=== PATIENT | male | born 1955 | race Caucasian/White ===

== ENCOUNTER 2023-01-30 09:41 | Outpatient (AMB) | payer MEDICARE, BC, SELFPAY ==
--- NOTE | 2023-01-30 09:46 | A.OFFVIS_ITS ---
Intake Intake Visit Reasons: Elevated PSA 5.8 Intake Note: New Patient presents for initial visit for elevated psa (psa 5.8) Urology Medications: none Blood Thinner: none Refrigeration Engineer Required: No Accompanied by: Self / Same As Patient Allergies No Known Allergies Allergy (Verified 01/30/23 10:31) Medication List - Last Reconciled 01/30/23 by JENNA Bee lisinopril 20 mg PO DAILY HPI HPI Comments History of Present Illness Details Ji is a very pleasant 67-year-old male patient of Dr. Dobson. He has a past medical history of rheumatic fever as a child, hyperlipidemia, hypertension, dilation of the thoracic aorta, and left knee DJD. He presents to the office today for an elevated PSA. In review of patient's chart it appears most recent PSA 10/27/22 5.8. When asked patient reports to be doing and feeling well. He reports previously having elevated PSA in the past however upon redraw with PCP it was noted to be within normal limits. He reports a previous history of prostatitis approximately 15 years ago at which time he was treated with antibiotic therapy and has since not experienced any prostatitis like issues. He denies any bothersome urinary issues or concerns at this time. He denies any known family history of prostate cancer. In office urinalysis results reviewed with the patient today. When asked he denies urinary urgency, urinary frequency, incontinence, nocturia, hematuria, dysuria, foul smelling urine, changes to urinary stream, flank pain, fever, and or chills. He is happy with hiscurrent voiding parameters. Discussed at length potential causes for elevated PSA. Discussed redraw of PSA with no sex the night before, no caffeine morning of, and no heavy lifting 1-2 days prior. Will obtain retroperitoneal ultrasound for further assessment evaluation. NICKI; smooth and no suspicious nodules palpated. [facility] Medical History History of rheumatic fever as a child Left knee DJD Impaired fasting glucose Essential (primary) hypertension Hyperlipidemia, unspecified Benign prostatic hyperplasia with nocturia Dilation of thoracic aorta Review of Systems Const Reports as per HPI Eyes Reports no additional complaints ENT Reports no additional complaints Card Reports as per HPI Resp Reports no additional complaints GI Reports no additional complaints Reports as per HPI Musc Reports as per HPI Neuro Reports no additional complaints Psych Reports no additional complaints Endo Reports no additional complaints Efrain/Lymph Reports no additional complaints Aller/Immun Reports no additional complaints Physical Exam Const General: cooperative, healthy appearing, comfortable, no acute distress, well developed, alert and awake Orientation/consciousness: patient oriented x3 Limitations: no limitations HEENT Head: Yes normal to inspection, Yes normocephalic and Yes atraumatic Ears: hearing grossly normal bilaterally Eyes General: appearance normal, both eyes and all related structures Neck Neck: Yes normal visual inspection and Yes trachea midline Chest Chest palpation & inspection: normal inspection of the chest Resp Effort & Inspection: normal respiratory effort and able to speak in complete sentences Cardio Rate: regular rate GI Inspection: Yes normal to inspection General: Yes no CVA tenderness Back/Spine/Pelvis Back: no CVA tenderness Skin General skin exam: no rashes or lesions noted Neuro General: patient oriented x3 Extrem General: Yes normal to inspection Psych Appearance: grossly normal and well kempt Mental Status: mental status grossly normal Speech and movement: Normal speech and movement present and Clear speech present Affect: normal affect Attitude: cooperative Thought process: Normal thought process present Thought content: Normal thought content present Insight: Good insight present (Psych) Judgement: Good judgement present (Psych) Results AMB Urinalysis, Automated UA Leukoctes 0 Kassandra/uL Last Edit by [facility] on 01/30/23 10:19 UA Nitrite Negative Last Edit by [facility] on 01/30/23 10:19 UA Urobilinogen 0.2 mg/dL Last Edit by [facility] on 01/30/23 10:19 UA Protein 15 mg/dL Last Edit by [facility] on 01/30/23 10:19 UA pH 6.0 Last Edit by [facility] on 01/30/23 10:19 UA Blood 0 Aiden/uL Last Edit by [facility] on 01/30/23 10:19 UA Specific [place] 1.025 Last Edit by [facility] on 01/30/23 10:19 UA Ketone Positive Last Edit by [facility] on 01/30/23 10:19 UA Bilirubin 0 mg/dL Last Edit by [facility] on 01/30/23 10:19 UA Glucose 0 mg/dL Last Edit by Lidia Lovelace on 01/30/23 10:19 Results Reviewed Results Reviewed: Laboratory Last Values Urine pH (Auto) 6.0 01/30/23 10:01 Specific [place] (Auto) 1.025 01/30/23 10:01 Urine Protein (Auto) 15 mg/dL 01/30/23 10:01 Glucose (UA)(Auto) 0 mg/dL 01/30/23 10:01 Urine Ketones (Auto) Positive 01/30/23 10:01 Urine Blood (Auto) 0 Aiden/uL 01/30/23 10:01 Urine Nitrite (Auto) Negative 01/30/23 10:01 Urine Bilirubin (Auto) 0 mg/dL 01/30/23 10:01 Urine Urobilinogen (Auto) 0.2 mg/dL 01/30/23 10:01 Leukocyte Esterase (Auto) 0 Kassandra/uL 01/30/23 10:01 Assessment & Plan Assessment & Plan (1) Elevated PSA: Code(s): R97.20 - Elevated prostate specific antigen [PSA] Plan In office urinalysis results reviewed with the patient today; as noted above Discussed at length potential causes for elevated PSA Will obtain redraw of PSA free and total; up with specific instructions of no sex the night before, no caffeine morning of, and no heavy lifting 1-2 days prior. Will obtain retroperitoneal ultrasound for further assessment and evaluation. Patient denies any bothersome urinary issues or concerns at this time. He is happy with his current voiding parameters. Follow-up in 1-2 months with imaging and labs to be completed prior; or sooner with any issues, concerns, or questions. Orders: Orders PSA,Total (Free>4and<10) Today R97.20 - Elevated prostate specific antigen [PSA] US retroperitoneal comp Today R39.9 - Unspecified symptoms and signs involving the genitourinary system, R97.20 - Elevated prostate specific antigen [PSA] AMB Urinalysis Automated Today Z13.9 - Encounter for screening, unspecified Patient Instructions: The patient had an opportunity to ask questions regarding the treatment plan. All questions were answered. Physical exam, labs, and imaging were discussed and reviewed in detail. As well as risks, benefits, and discussion of treatment choices. No major barriers to understanding were identified. The patient expressed understanding and agreement with the above treatment plan. The patient was made aware they should contact our office by phone for worsening of their current condition, the appearance of new symptoms, or with any questions or concerns. Compliance is encouraged with any medications and follow up testing that is ordered. It is a privilege to be allowed the opportunity to participate in? your urological care.? Again, if you have any questions or concerns If you have any questions or concerns please do not hesitate to contact me. The office is [phone]. This note is constructed using voice recognition software. While every effort has been made to ensure accuracy coater operator insulation board errors may have been included. Yours sincerely, JENNA Bee Coding Level of Care Code New Pt Level 3 (72335) Diagnoses Elevated PSA R97.20
== END 2023-01-30 10:39 | disposition home or self-care (01) ==
PROVIDERS: PCP Internal Medicine; Referring Provider Internal Medicine; Visit Provider Nurse Practitioner Family
DX: R97.20 Elevated prostate specific antigen [PSA] (principal); Z13.9 Encounter for screening, unspecified
CPT/HCPCS: 99203

== ENCOUNTER → 2023-01-30 09:41 | Outpatient (BNVA) | payer MEDICARE, BC, SELFPAY | PROVIDERS: PCP Internal Medicine; Referring Provider Internal Medicine; Visit Provider Nurse Practitioner Family | DX: R97.20 Elevated prostate specific antigen [PSA] (principal) | CPT/HCPCS: 81003 ==

== ENCOUNTER 2023-03-19 09:31 | Outpatient (REF) | payer MEDICARE, BC, SELFPAY ==
--- NOTE | ~2023-03-19 | US_ITS ---
EXAMINATION: US RETROPERITONEAL COMPLETE (RENAL) CLINICAL INFORMATION: Elevated prostate-specific antigen. Per picker box operator patient states he can't empty under pressure. COMPARISON: None available. TECHNIQUE: Real-time imaging of the kidneys and bladder. Limited visualization due to bowel gas. FINDINGS: RIGHT KIDNEY: 10.5 x 5.1 x 5.6 cm (SAG x AP x TRV). No hydronephrosis. No renal calculi. Renal cortical thickness is normal. Limited visualization. Lower pole 0.8 cm cyst with benign features. There is no indication for follow-up imaging. LEFT KIDNEY: 11.1 x 5.4 x 5.1 cm (SAG x AP x TRV). The kidney is normal in size, contour, and echogenicity. Renal cortical thickness is normal. No calculi or focal parenchymal lesions. No hydronephrosis. BLADDER: Well distended. Bilateral ureteral jets are demonstrated. Prevoid bladder volume is 150.5 mL. Postvoid bladder volume is 145.0 mL. Per picker box operator patient states he can't empty under pressure. A 1.4 x 0.9 x 1.8 cm cystic structure along the bladder wall, possibly representing a ureterocele. Urology consultation recommended with possible direct visualization with cystoscopy. Enlarged prostate, 85.8 mL. Echogenic foci within the enlarged prostate are characteristic coarse calcifications. US/US retroperitoneal comp IMPRESSION: 1. Right renal lower pole 0.8 cm cyst with benign features. There is no indication for follow-up imaging. 2. Enlarged prostate, 85.8 mL. Echogenic foci within the enlarged prostate characteristic coarse calcifications. A 1.4 x 0.9 x 1.8 cm cystic structure along the bladder wall. 3. A 1.8 cm cystic structure along the bladder wall, possibly representing a ureterocele. Urology consultation recommended with possible direct visualization with cystoscopy.
== END 2023-03-19 09:32 | disposition home or self-care (01) ==
LOC: HO.US 09:31
PROVIDERS: PCP Physician Assistant Medical; Visit Provider Nurse Practitioner Family
DX: R97.20 Elevated prostate specific antigen [PSA] (principal); R39.9 Unspecified symptoms and signs involving the genitourinary system
CPT/HCPCS: 76770

== ENCOUNTER 2023-03-28 09:13 | Outpatient (AMB) | payer MEDICARE, BC, SELFPAY ==
--- NOTE | 2023-03-28 09:45 | A.OFFVIS_ITS ---
Intake Intake Visit Reasons: follow up/labs/imaging Intake Note: Patient presents for follow up visit for elevated psa/ultrasound (psa 5.5) (imaging 03/19/23) Urology Medications: none Blood Thinner: none Field Artillery Crewmember Required: No Accompanied by: Self / Same As Patient Allergies No Known Allergies Allergy (Verified 03/28/23 22:55) Medication List - Last Reconciled 03/28/23 by MELY Bee- finasteride 5 mg PO DAILY 90 days lisinopril 20 mg PO DAILY HPI HPI Comments History of Present Illness Details Ji is a very pleasant 67-year-old male patient of Dr. Dobson. He has a past medical history of rheumatic fever as a child, hyperlipidemia, hypertension, dilation of the thoracic aorta, and left knee DJD. He presents to the office today for a follow up of his elevated PSA. Of note, patient was seen approximately two months at which time a redraw of his PSA was ordered as well as a retroperitoneal ultrasound. These results reviewed with the patient today. Bilateral kidneys with no calculi, and or hydronephrosis. Right lower pole 0.8 cm cyst with benign features. There is no indication for follow-up imaging per radiology report. The bladder is well distended. A 1.4 x 0.9 x 1.8 cm cystic structure along the bladder wall, possibly representing a ureterocele. Enlarged prostate of approximately 86 mL. Echogenic foci within the enlarged prostate or characteristics of coarse calcifications. PSAs are as follows: 10/29--5.8 03/31-- 5.5 When asked patient reports to be doing and feeling well. He reports a previous history of prostatitis approximately 15 years ago at which time he was treated with antibiotic therapy and has since not experienced any prostatitis like issues. He denies any bothersome urinary issues or concerns at this time. He denies any known family history of prostate cancer. In office urinalysis results reviewed with the patient today. When asked he denies urinary urgency, urinary frequency, incontinence, nocturia, hematuria, dysuria, foul smelling urine, changes to urinary stream, flank pain, fever, and or chills. He is happy with his current voiding parameters. Discussed at length potential causes for elevated PSA. PCPT risk calculator results reviewed with the patient today. 71% chance of prostate biopsy being negative for cancer, 20% chance of low-grade prostate cancer, and 9% chance of high-grade prostate cancer. Discussed at length surveillance monitoring verses prostate biopsy. Discussed risks and benefits of these interventions. Discussed near future in office cystoscopy for further assessment evaluation of ureterocele. [facility] Medical History History of rheumatic fever as a child Left knee DJD Impaired fasting glucose Essential (primary) hypertension Hyperlipidemia, unspecified Benign prostatic hyperplasia with nocturia Dilation of thoracic aorta Review of Systems Const Reports as per HPI Eyes Reports no additional complaints ENT Reports no additional complaints Card Reports as per HPI Resp Reports no additional complaints GI Reports no additional complaints Reports as per HPI Musc Reports as per HPI Neuro Reports no additional complaints Psych Reports no additional complaints Endo Reports no additional complaints Ferain/Lymph Reports no additional complaints Aller/Immun Reports no additional complaints Physical Exam Const General: cooperative, healthy appearing, comfortable, no acute distress, well developed, alert and awake Orientation/consciousness: patient oriented x3 Limitations: no limitations HEENT Head: Yes normal to inspection, Yes normocephalic and Yes atraumatic Ears: hearing grossly normal bilaterally Eyes General: appearance normal, both eyes and all related structures Neck Neck: Yes normal visual inspection and Yes trachea midline Chest Chest palpation & inspection: normal inspection of the chest Resp Effort & Inspection: normal respiratory effort and able to speak in complete sentences Cardio Rate: regular rate GI Inspection: Yes normal to inspection General: Yes no CVA tenderness Back/Spine/Pelvis Back: no CVA tenderness Skin General skin exam: no rashes or lesions noted Neuro General: patient oriented x3 Extrem General: Yes normal to inspection Psych Appearance: grossly normal and well kempt Mental Status: mental status grossly normal Speech and movement: Normal speech and movement present and Clear speech present Affect: normal affect Attitude: cooperative Thought process: Normal thought process present Thought content: Normal thought content present Insight: Good insight present (Psych) Judgement: Good judgement present (Psych) Results AMB Urinalysis, Automated UA Leukoctes 0 Kassandra/uL Last Edit by Lidia Lovelace on 03/28/23 09:54 UA Nitrite Last Edit by Lidia Lovelace on 03/28/23 09:54 UA Urobilinogen 0.2 mg/dL Last Edit by Lidia Lovelace on 03/28/23 09:54 UA Protein 0 mg/dL Last Edit by Lidia Lovelace on 03/28/23 09:54 UA pH 6.0 Last Edit by Lidia Lovelace on 03/28/23 09:54 UA Blood 0 Aiden/uL Last Edit by Lidia Lovelace on 03/28/23 09:54 UA Specific [place] 1.025 Last Edit by Lidia Lovelace on 03/28/23 09:54 UA Ketone Negative Last Edit by Lidia Lovelace on 03/28/23 09:54 UA Bilirubin 0 mg/dL Last Edit by Lidia Lovelace on 03/28/23 09:54 UA Glucose 0 mg/dL Last Edit by Lidia Lovelace on 03/28/23 09:54 Results Reviewed Results Reviewed: Laboratory Last Values Urine pH (Auto) 6.0 03/28/23 09:53 Specific [place] (Auto) 1.025 03/28/23 09:53 Urine Protein (Auto) 0 mg/dL 03/28/23 09:53 Glucose (UA)(Auto) 0 mg/dL 03/28/23 09:53 Urine Ketones (Auto) Negative 03/28/23 09:53 Urine Blood (Auto) 0 Aiden/uL 03/28/23 09:53 Urine Bilirubin (Auto) 0 mg/dL 03/28/23 09:53 Urine Urobilinogen (Auto) 0.2 mg/dL 03/28/23 09:53 Leukocyte Esterase (Auto) 0 Kassandra/uL 03/28/23 09:53 Date of Service: 03/19/23 EXAMINATION: US RETROPERITONEAL COMPLETE (RENAL) FINDINGS: RIGHT KIDNEY: 10.5 x 5.1 x 5.6 cm (SAG x AP x TRV). No hydronephrosis. No renal calculi. Renal cortical thickness is normal. Limited visualization. Lower pole 0.8 cm cyst with benign features. There is no indication for follow-up imaging. LEFT KIDNEY: 11.1 x 5.4 x 5.1 cm (SAG x AP x TRV). The kidney is normal in size, contour, and echogenicity. Renal cortical thickness is normal. No calculi or focal parenchymal lesions. No hydronephrosis. BLADDER: Well distended. Bilateral ureteral jets are demonstrated. Prevoid bladder volume is 150.5 mL. Postvoid bladder volume is 145.0 mL. Per speeder machine operator patient states he can't empty under pressure. A 1.4 x 0.9 x 1.8 cm cystic structure along the bladder wall, possibly representing a ureterocele. Urology consultation recommended with possible direct visualization with cystoscopy. Enlarged prostate, 85.8 mL. Echogenic foci within the enlarged prostate are characteristic coarse calcifications. IMPRESSION: 1. Right renal lower pole 0.8 cm cyst with benign features. There is no indication for follow-up imaging. 2. Enlarged prostate, 85.8 mL. Echogenic foci within the enlarged prostate characteristic coarse calcifications. A 1.4 x 0.9 x 1.8 cm cystic structure along the bladder wall. 3. A 1.8 cm cystic structure along the bladder wall, possibly representing a ureterocele. Urology consultation recommended with possible direct visualization with cystoscopy. Assessment & Plan Assessment & Plan (1) Elevated PSA: Code(s): R97.20 - Elevated prostate specific antigen [PSA] (2) Ureterocele: Code(s): N28.89 - Other specified disorders of kidney and ureter (3) Enlarged prostate: Code(s): N40.0 - Benign prostatic hyperplasia without lower urinary tract symptoms Plan In office urinalysis results reviewed with the patient today; as noted above. Recent retroperitoneal ultrasound results reviewed with the patient today; as noted above. Recent PSA results reviewed with the patient today; as noted above. Discussed at length potential causes of elevated PSA. Discussed at length treatment options with surveillance monitoring verses trial of finasteride verses prostate biopsy; discussed risks and benefits of these asforementioned interventions. Start finasteride as discussed and prescribed. Will obtain redraw of PSA in 4 months. Patient denies any bothersome urinary issues or concerns at this time. Follow-up in 4 months with lab to be completed prior; or sooner with any issues, concerns, and or questions. Orders: Orders PSA,Total (Free>4and<10) 4 Months R97.20 - Elevated prostate specific antigen [PSA] AMB Urinalysis Automated 03/28/23 Z13.9 - Encounter for screening, unspecified Medications: New finasteride 5 mg PO DAILY 90 days 90 tabs 1RF N13.8 - Other obstructive and reflux uropathy, N40.1 - Benign prostatic hyperplasia with lower urinary tract symptoms, R33.9 - Retention of urine, unspecified Patient Instructions: The patient had an opportunity to ask questions regarding the treatment plan. All questions were answered. Physical exam, labs, and imaging were discussed and reviewed in detail. As well as risks, benefits, and discussion of treatment choices. No major barriers to understanding were identified. The patient expressed understanding and agreement with the above treatment plan. The patient was made aware they should contact our office by phone for worsening of their current condition, the appearance of new symptoms, or with any questions or concerns. Compliance is encouraged with any medications and follow up testing that is ordered. It is a privilege to be allowed the opportunity to participate in? your urological care.? Again, if you have any questions or concerns If you have any questions or concerns please do not hesitate to contact me. The office is [phone]. This note is constructed using voice recognition software. While every effort has been made to ensure accuracy sales and service agent errors may have been included. Yours sincerely, JENNA Bee Coding Level of Care Code Est Pt Level 4 (51422) Diagnoses Elevated PSA R97.20 Ureterocele N28.89 Enlarged prostate N40.0
== END 2023-03-28 10:25 | disposition home or self-care (01) ==
PROVIDERS: PCP Internal Medicine; Visit Provider Nurse Practitioner Family
DX: R97.20 Elevated prostate specific antigen [PSA] (principal); N28.89 Other specified disorders of kidney and ureter; N40.0 Benign prostatic hyperplasia without lower urinary tract symptoms
CPT/HCPCS: 99214

== ENCOUNTER → 2023-03-28 09:13 | Outpatient (BNVA) | payer MEDICARE, BC, SELFPAY | PROVIDERS: PCP Internal Medicine; Visit Provider Nurse Practitioner Family | DX: R97.20 Elevated prostate specific antigen [PSA] (principal); N28.89 Other specified disorders of kidney and ureter; N40.0 Benign prostatic hyperplasia without lower urinary tract symptoms | CPT/HCPCS: 81003; 99212 ==

== ENCOUNTER 2023-08-01 08:51 | Outpatient (REF) | payer MEDICARE, BC, SELFPAY | END 2023-08-01 08:52 | disposition home or self-care (01) | LOC: HO.10HDL 08:51 | PROVIDERS: Visit Provider Nurse Practitioner Family | DX: Z12.5 Encounter for screening for malignant neoplasm of prostate (principal); R97.20 Elevated prostate specific antigen [PSA] | CPT/HCPCS: 36415; 84153 ==

== ENCOUNTER 2023-08-06 09:36 | Outpatient (AMB) | payer MEDICARE, BC, SELFPAY ==
--- NOTE | 2023-08-06 09:41 | MHC.OFFVIS ---
Intake Visit Reasons: PSA total- 4 M f/u(set) Intake Note: Patient presents for follow up visit for elevated psa and lab results PSA: 3.70 Urology Medications: none Blood Thinner: none Social Service Technician Required: No Accompanied by: Self / Same As Patient Allergies No Known Allergies Allergy (Verified 08/06/23 10:07) Medication List - Last Reconciled 08/06/23 by JENNA Bee finasteride 5 mg PO DAILY 90 days lisinopril 20 mg PO DAILY HPI Comments Details: Ji is a very pleasant 68-year-old male patient of Dr. Dobson. He has a past medical history of rheumatic fever as a child, hyperlipidemia, hypertension, dilation of the thoracic aorta, and left knee DJD. He presents to the office today for a follow up of his elevated PSA. In discussion with the patient today reports to be doing and feeling well. Recent PSA results reviewed with the patient today. As noted and trended below. 10/29 5.8, 03/31 5.5, 07/31 3.7 When asked he reports compliance with finasteride as prescribed. Previous workup has included a retroperitoneal ultrasound noting bilateral kidneys with no calculi, and or hydronephrosis. Right lower pole 0.8 cm cyst with benign features. There is no indication for follow-up imaging per radiology report. The bladder is well distended. A 1.4 x 0.9 x 1.8 cm cystic structure along the bladder wall, possibly representing a ureterocele. Enlarged prostate of approximately 86 mL. Echogenic foci within the enlarged prostate or characteristics of coarse calcifications. He has a history of prostatitis approximately 15 years ago at which time he was treated with antibiotic therapy and has since not experienced any prostatitis like issues. He denies any bothersome urinary issues or concerns at this time. In office urinalysis results reviewed with the patient today. When asked he denies urinary urgency, urinary frequency, incontinence, nocturia, hematuria, dysuria, foul smelling urine, changes to urinary stream, flank pain, fever, and or chills. He is happy with his current voiding parameters. Discussed near future in office cystoscopy for further assessment evaluation of ureterocele. He otherwise denies any other issues or concerns at this time. [facility] Medical History History of rheumatic fever as a child Left knee DJD Impaired fasting glucose Essential (primary) hypertension Hyperlipidemia, unspecified Benign prostatic hyperplasia with nocturia Dilation of thoracic aorta Review of Systems Const Reports as per HPI Eyes Reports no additional complaints ENT Reports no additional complaints Card Reports as per HPI Resp Reports no additional complaints GI Reports no additional complaints Reports as per HPI Musc Reports as per HPI Neuro Reports no additional complaints Psych Reports no additional complaints Endo Reports no additional complaints Efrain/Lymph Reports no additional complaints Aller/Immun Reports no additional complaints Physical Exam Const General: cooperative, healthy appearing, comfortable, no acute distress, well developed, alert and awake Orientation/consciousness: patient oriented x3 Limitations: no limitations HEENT Head: Yes normal to inspection, Yes normocephalic and Yes atraumatic Ears: hearing grossly normal bilaterally Eyes General: appearance normal, both eyes and all related structures Neck Neck: Yes normal visual inspection and Yes trachea midline Chest Chest palpation & inspection: normal inspection of the chest Resp Effort & Inspection: normal respiratory effort and able to speak in complete sentences Cardio Rate: regular rate GI Inspection: Yes normal to inspection General: Yes no CVA tenderness Back/Spine/Pelvis Back: no CVA tenderness Skin General skin exam: no rashes or lesions noted Neuro General: patient oriented x3 Extrem General: Yes normal to inspection Psych Appearance: grossly normal and well kempt Mental Status: mental status grossly normal Speech and movement: Normal speech and movement present and Clear speech present Affect: normal affect Attitude: cooperative Thought process: Normal thought process present Thought content: Normal thought content present Insight: Good insight present (Psych) Judgement: Good judgement present (Psych) Results AMB Urinalysis, Automated UA Leukoctes 0 Kassandra/uL Last Edit by Lidia Lovelace on 08/06/23 09:52 UA Nitrite Negative Last Edit by Lidia Lovelace on 08/06/23 09:52 UA Urobilinogen 0.2 mg/dL Last Edit by Lidia Lovelace on 08/06/23 09:52 UA Protein 0 mg/dL Last Edit by Lidia Lovelace on 08/06/23 09:52 UA pH 6.0 Last Edit by Lidia Lovelace on 08/06/23 09:52 UA Blood 0 Aiden/uL Last Edit by Lidia Lovelace on 08/06/23 09:52 UA Specific [place] 1.020 Last Edit by Lidia Lovelace on 08/06/23 09:52 UA Ketone Negative Last Edit by Lidia Lovelace on 08/06/23 09:52 UA Bilirubin 0 mg/dL Last Edit by Lidia Lovelace on 08/06/23 09:52 UA Glucose 0 mg/dL Last Edit by Lidia Lovelace on 08/06/23 09:52 Results Reviewed Results Reviewed: Laboratory Last Values Urine pH (Auto) 6.0 08/06/23 09:46 Specific [place] (Auto) 1.020 08/06/23 09:46 Urine Protein (Auto) 0 mg/dL 08/06/23 09:46 Glucose (UA)(Auto) 0 mg/dL 08/06/23 09:46 Urine Ketones (Auto) Negative 08/06/23 09:46 Urine Blood (Auto) 0 Aiden/uL 08/06/23 09:46 Urine Nitrite (Auto) Negative 08/06/23 09:46 Urine Bilirubin (Auto) 0 mg/dL 08/06/23 09:46 Urine Urobilinogen (Auto) 0.2 mg/dL 08/06/23 09:46 Leukocyte Esterase (Auto) 0 Kassandra/uL 08/06/23 09:46 Assessment & Plan Assessment & Plan (1) Enlarged prostate: Code(s): N40.0 - Benign prostatic hyperplasia without lower urinary tract symptoms Category: Medical (2) Elevated PSA: Code(s): R97.20 - Elevated prostate specific antigen [PSA] Category: Medical (3) Ureterocele: Code(s): N28.89 - Other specified disorders of kidney and ureter Category: Medical Plan In office urinalysis results reviewed with the patient today; as noted above. Recent PSA results reviewed with the patient today; as noted above. Discussed at length potential causes of elevated PSA. Continue finasteride as discussed and prescribed. Will obtain redraw of PSA in 4 months. Patient denies any bothersome urinary issues or concerns at this time. Follow-up in 4 months with lab to be completed prior; or sooner with any issues, concerns, and or questions. Orders: Orders AMB Urinalysis Automated Today Z13.9 - Encounter for screening, unspecified Prostate Specific Antigen 4 Months N40.0 - Benign prostatic hyperplasia without lower urinary tract symptoms, R97.20 - Elevated prostate specific antigen [PSA] Medications: Refilled finasteride 5 mg PO DAILY 90 days 90 tabs 3RF N13.8 - Other obstructive and reflux uropathy, N40.1 - Benign prostatic hyperplasia with lower urinary tract symptoms, R33.9 - Retention of urine, unspecified Patient Instructions: The patient had an opportunity to ask questions regarding the treatment plan. All questions were answered. Physical exam, labs, and imaging were discussed and reviewed in detail. As well as risks, benefits, and discussion of treatment choices. No major barriers to understanding were identified. The patient expressed understanding and agreement with the above treatment plan. The patient was made aware they should contact our office by phone for worsening of their current condition, the appearance of new symptoms, or with any questions or concerns. Compliance is encouraged with any medications and follow up testing that is ordered. It is a privilege to be allowed the opportunity to participate in? your urological care.? Again, if you have any questions or concerns If you have any questions or concerns please do not hesitate to contact me. The office is [phone]. This note is constructed using voice recognition software. While every effort has been made to ensure accuracy shipyard painting supervisor errors may have been included. Yours sincerely, JENNA Bee Coding Level of Care Code Est Pt Level 3 (39270) Diagnoses Enlarged prostate N40.0 Elevated PSA R97.20 Ureterocele N28.89
== END 2023-08-06 10:09 | disposition home or self-care (01) ==
PROVIDERS: PCP Internal Medicine; Visit Provider Nurse Practitioner Family
DX: N40.0 Benign prostatic hyperplasia without lower urinary tract symptoms (principal); R97.20 Elevated prostate specific antigen [PSA]; N28.89 Other specified disorders of kidney and ureter; Z13.9 Encounter for screening, unspecified
CPT/HCPCS: 99213

== ENCOUNTER → 2023-08-06 09:36 | Outpatient (BNVA) | payer MEDICARE, BC, SELFPAY | PROVIDERS: PCP Internal Medicine; Visit Provider Nurse Practitioner Family | DX: R97.20 Elevated prostate specific antigen [PSA] (principal); N40.1 Benign prostatic hyperplasia with lower urinary tract symptoms; N13.8 Other obstructive and reflux uropathy; R33.8 Other retention of urine; N28.89 Other specified disorders of kidney and ureter | CPT/HCPCS: 81003; 99212 ==

== ENCOUNTER 2023-11-07 08:27 | Outpatient (REF) | payer MEDICARE, BC, SELFPAY ==
[2023-11-07 11:47] LABS: Prostate Specific Antigen 3.11 ng/mL (<0.05-4.0)
== END 2023-11-07 08:28 | disposition home or self-care (01) ==
LOC: HO.10HDL 08:27
PROVIDERS: Visit Provider Nurse Practitioner Family
DX: N40.0 Benign prostatic hyperplasia without lower urinary tract symptoms (principal); R97.20 Elevated prostate specific antigen [PSA]; Z12.5 Encounter for screening for malignant neoplasm of prostate
CPT/HCPCS: 36415; 84153

== ENCOUNTER 2023-11-20 09:27 | Outpatient (AMB) | payer MEDICARE, BC, SELFPAY ==
--- NOTE | 2023-11-20 09:33 | MHC.OFFVIS ---
Intake Visit Reasons: 4m Follow up/PSA Intake Note: Patient presents for follow up visit for elevated psa and lab results PSA: 3.11 Urology Medications: Finasteride Blood Thinner: none Design Verification Engineer Required: No Accompanied by: Self / Same As Patient Allergies No Known Allergies Allergy (Verified 11/20/23 09:59) Medication List - Last Reconciled 11/20/23 by JENNA Bee amlodipine 5 mg PO DAILY finasteride 5 mg PO DAILY 90 days lisinopril 20 mg PO DAILY HPI Comments Details: Ji is a very pleasant 68-year-old male patient of Dr. Dobson. He has a past medical history of rheumatic fever as a child, hyperlipidemia, hypertension, dilation of the thoracic aorta, and left knee DJD. He presents to the office today for a follow up of his elevated PSA. In discussion with the patient today reports to be doing and feeling well. Recent PSA results reviewed with the patient today. As noted and trended below. 10/29 5.8, 03/31 5.5, 07/31 3.7 10/30 3.1 When asked he reports compliance with finasteride as prescribed. Previous workup has included a retroperitoneal ultrasound noting bilateral kidneys with no calculi, and or hydronephrosis. Right lower pole 0.8 cm cyst with benign features. There is no indication for follow-up imaging per radiology report. The bladder is well distended. A 1.4 x 0.9 x 1.8 cm cystic structure along the bladder wall, possibly representing a ureterocele. Enlarged prostate of approximately 86 mL. Echogenic foci within the enlarged prostate or characteristics of coarse calcifications. He denies any bothersome urinary issues or concerns at this time. In office urinalysis results reviewed with the patient today. When asked he denies urinary urgency, urinary frequency, incontinence, nocturia, hematuria, dysuria, foul smelling urine, changes to urinary stream, flank pain, fever, and or chills. He is happy with his current voiding parameters. He otherwise denies any other issues or concerns at this time. [facility] Medical History History of rheumatic fever as a child Left knee DJD Impaired fasting glucose Essential (primary) hypertension Hyperlipidemia, unspecified Benign prostatic hyperplasia with nocturia Dilation of thoracic aorta Review of Systems Const Reports as per HPI Eyes Reports no additional complaints ENT Reports no additional complaints Card Reports as per [facility] Resp Reports no additional complaints GI Reports no additional complaints Reports as per [facility] Musc Reports as per [facility] Neuro Reports no additional complaints Psych Reports no additional complaints Endo Reports no additional complaints Efrain/Lymph Reports no additional complaints Aller/Immun Reports no additional complaints Physical Exam Const General: cooperative, healthy appearing, comfortable, no acute distress, well developed, alert and awake Orientation/consciousness: patient oriented x3 Limitations: no limitations HEENT Head: Yes normal to inspection, Yes normocephalic and Yes atraumatic Ears: hearing grossly normal bilaterally Eyes General: appearance normal, both eyes and all related structures Neck Neck: Yes normal visual inspection and Yes trachea midline Chest Chest palpation & inspection: normal inspection of the chest Resp Effort & Inspection: normal respiratory effort and able to speak in complete sentences Cardio Rate: regular rate GI Inspection: Yes normal to inspection General: Yes no CVA tenderness Back/Spine/Pelvis Back: no CVA tenderness Skin General skin exam: no rashes or lesions noted Neuro General: patient oriented x3 Extrem General: Yes normal to inspection Psych Appearance: grossly normal and well kempt Mental Status: mental status grossly normal Speech and movement: Normal speech and movement present and Clear speech present Affect: normal affect Attitude: cooperative Thought process: Normal thought process present Thought content: Normal thought content present Insight: Good insight present (Psych) Judgement: Good judgement present (Psych) Results AMB Urinalysis, Automated UA Leukoctes 0 Kassandra/uL Last Edit by Symbolic IO on 11/20/23 09:41 UA Nitrite Last Edit by Symbolic IO on 11/20/23 09:41 UA Urobilinogen 0.2 mg/dL Last Edit by Symbolic IO on 11/20/23 09:41 UA Protein 15 mg/dL Last Edit by Symbolic IO on 11/20/23 09:41 UA pH 6.0 Last Edit by Symbolic IO on 11/20/23 09:41 UA Blood 0 Aiden/uL Last Edit by Symbolic IO on 11/20/23 09:41 UA Specific [place] 1.015 Last Edit by Symbolic IO on 11/20/23 09:41 UA Ketone Last Edit by Symbolic IO on 11/20/23 09:41 UA Bilirubin 0 mg/dL Last Edit by Lidia Lovelace on 11/20/23 09:41 UA Glucose 0 mg/dL Last Edit by Lidia Lovelace on 11/20/23 09:41 Results Reviewed Results Reviewed: Laboratory Last Values Urine pH (Auto) 6.0 11/20/23 09:35 Specific [place] (Auto) 1.015 11/20/23 09:35 Urine Protein (Auto) 15 mg/dL 11/20/23 09:35 Glucose (UA)(Auto) 0 mg/dL 11/20/23 09:35 Urine Blood (Auto) 0 Aiden/uL 11/20/23 09:35 Urine Bilirubin (Auto) 0 mg/dL 11/20/23 09:35 Urine Urobilinogen (Auto) 0.2 mg/dL 11/20/23 09:35 Leukocyte Esterase (Auto) 0 Kassandra/uL 11/20/23 09:35 Assessment & Plan Assessment & Plan (1) Enlarged prostate: Code(s): N40.0 - Benign prostatic hyperplasia without lower urinary tract symptoms Category: Medical (2) Elevated PSA: Code(s): R97.20 - Elevated prostate specific antigen [PSA] Category: Medical (3) Ureterocele: Code(s): N28.89 - Other specified disorders of kidney and ureter Category: Medical Plan In office urinalysis results reviewed with the patient today; as noted above. Recent PSA results reviewed with the patient today; as noted above. Discussed at length potential causes of elevated PSA. Continue finasteride as discussed and prescribed. Will obtain redraw of PSA in 4 months. Patient denies any bothersome urinary issues or concerns at this time. Follow-up in 4 months with lab to be completed prior; or sooner with any issues, concerns, and or questions. Orders: Orders PSA,Total (Free>4and<10) 4 Months N40.0 - Benign prostatic hyperplasia without lower urinary tract symptoms, R97.20 - Elevated prostate specific antigen [PSA] AMB Urinalysis Automated Today Z13.9 - Encounter for screening, unspecified Patient Instructions: The patient had an opportunity to ask questions regarding the treatment plan. All questions were answered. Physical exam, labs, and imaging were discussed and reviewed in detail. As well as risks, benefits, and discussion of treatment choices. No major barriers to understanding were identified. The patient expressed understanding and agreement with the above treatment plan. The patient was made aware they should contact our office by phone for worsening of their current condition, the appearance of new symptoms, or with any questions or concerns. Compliance is encouraged with any medications and follow up testing that is ordered. It is a privilege to be allowed the opportunity to participate in? your urological care.? Again, if you have any questions or concerns If you have any questions or concerns please do not hesitate to contact me. The office is [phone]. This note is constructed using voice recognition software. While every effort has been made to ensure accuracy waiter/waitress cabin class errors may have been included. Yours sincerely, JENNA Bee Coding Level of Care Code Est Pt Level 3 (01654) Diagnoses Enlarged prostate N40.0 Elevated PSA R97.20 Ureterocele N28.89
== END 2023-11-20 10:01 | disposition home or self-care (01) ==
PROVIDERS: PCP Internal Medicine; Visit Provider Nurse Practitioner Family
DX: N40.0 Benign prostatic hyperplasia without lower urinary tract symptoms (principal); R97.20 Elevated prostate specific antigen [PSA]; N28.89 Other specified disorders of kidney and ureter; Z13.9 Encounter for screening, unspecified
CPT/HCPCS: 99213

== ENCOUNTER → 2023-11-20 09:27 | Outpatient (BNVA) | payer MEDICARE, BC, SELFPAY | PROVIDERS: PCP Internal Medicine; Visit Provider Nurse Practitioner Family | DX: R97.20 Elevated prostate specific antigen [PSA] (principal); N40.0 Benign prostatic hyperplasia without lower urinary tract symptoms; N28.89 Other specified disorders of kidney and ureter | CPT/HCPCS: 81003; 99212 ==

== ENCOUNTER 2024-03-17 09:10 | Outpatient (REF) | payer MEDICARE, BC, SELFPAY ==
[2024-03-17 11:08] LABS: PSA,Total (Free>4and<10) 2.72 ng/mL (0.00-4.00)
== END 2024-03-17 09:11 | disposition home or self-care (01) ==
LOC: HO.LAB 09:10
PROVIDERS: PCP Physician Assistant Medical; Visit Provider Nurse Practitioner Family
DX: Z12.5 Encounter for screening for malignant neoplasm of prostate (principal); R97.20 Elevated prostate specific antigen [PSA]; N40.0 Benign prostatic hyperplasia without lower urinary tract symptoms
CPT/HCPCS: 36415; 84153

== ENCOUNTER 2024-03-20 09:17 | Outpatient (AMB) | payer MEDICARE, BC, SELFPAY ==
--- NOTE | 2024-03-20 09:42 | A.OFFVIS_ITS ---
Intake Visit Reasons: 4m/PSA Intake Note: Patient presents for follow up visit for elevated psa and lab results PSA: 2.72 Urology Medications: Finasteride Blood Thinner: none Network Engineering Advisor Required: No Accompanied by: Self / Same As Patient Allergies No Known Allergies Allergy (Verified 03/20/24 10:59) Medication List - Last Reconciled 03/20/24 by CARL Bee amlodipine 5 mg PO DAILY finasteride 5 mg PO DAILY 90 days lisinopril 20 mg PO DAILY HPI Comments Details: Ji is a very pleasant 68-year-old male patient of Dr. Dobson. He has a past medical history of rheumatic fever as a child, hyperlipidemia, hypertension, dilation of the thoracic aorta, and left knee DJD. He presents to the office today for a follow up of his elevated PSA. In discussion with the patient today reports to be doing and feeling well. When asked he currently denies any bothersome urinary issues or concerns. He reports compliance with finasteride as prescribed. Recent PSA results reviewed with the patient today. As noted and trended below. 10/29 5.8, 03/31 5.5, 07/31 3.7 10/30 3.1, 04/01 2.7 Previous workup has included a retroperitoneal ultrasound noting bilateral kidneys with no calculi, and or hydronephrosis. Right lower pole 0.8 cm cyst with benign features. There is no indication for follow-up imaging per radiology report. The bladder is well distended. A 1.4 x 0.9 x 1.8 cm cystic structure along the bladder wall, possibly representing a ureterocele. Enlarged prostate of approximately 86 mL. Echogenic foci within the enlarged prostate or characteristics of coarse calcifications. In office urinalysis results reviewed with the patient today. When asked he denies urinary urgency, urinary frequency, incontinence, nocturia, hematuria, dysuria, foul smelling urine, changes to urinary stream, flank pain, fever, and or chills. He is happy with his current voiding parameters. He otherwise denies any other issues or concerns at this time. [facility] Medical History History of rheumatic fever as a child Left knee DJD Impaired fasting glucose Essential (primary) hypertension Hyperlipidemia, unspecified Benign prostatic hyperplasia with nocturia Dilation of thoracic aorta Review of Systems Const Reports as per HPI Eyes Reports no additional complaints ENT Reports no additional complaints Card Reports as per HPI Resp Reports no additional complaints GI Reports no additional complaints Reports as per HPI Musc Reports as per HPI Neuro Reports no additional complaints Psych Reports no additional complaints Endo Reports no additional complaints Efrain/Lymph Reports no additional complaints Aller/Immun Reports no additional complaints Physical Exam Const General: cooperative, healthy appearing, comfortable, no acute distress, well developed, alert and awake Orientation/consciousness: patient oriented x3 Limitations: no limitations HEENT Head: Yes normal to inspection, Yes normocephalic and Yes atraumatic Ears: hearing grossly normal bilaterally Eyes General: appearance normal, both eyes and all related structures Neck Neck: Yes normal visual inspection and Yes trachea midline Chest Chest palpation & inspection: normal inspection of the chest Resp Effort & Inspection: normal respiratory effort and able to speak in complete sentences Cardio Rate: regular rate GI Inspection: Yes normal to inspection General: Yes no CVA tenderness Back/Spine/Pelvis Back: no CVA tenderness Skin General skin exam: no rashes or lesions noted Neuro General: patient oriented x3 Extrem General: Yes normal to inspection Psych Appearance: grossly normal and well kempt Mental Status: mental status grossly normal Speech and movement: Normal speech and movement present and Clear speech present Affect: normal affect Attitude: cooperative Thought process: Normal thought process present Thought content: Normal thought content present Insight: Fair insight present (Psych) Judgement: Fair judgement present (Psych) Results AMB Urinalysis, Automated UA Leukoctes 0 Kassandra/uL Last Edit by Lidia Lovelace on 03/20/24 10:04 UA Nitrite Last Edit by Lidia Lovelace on 03/20/24 10:04 UA Urobilinogen 0.2 mg/dL Last Edit by Lidia Lovelace on 03/20/24 10:04 UA Protein 0 mg/dL Last Edit by Lidia Lovelace on 03/20/24 10:04 UA pH 6.0 Last Edit by Lidia Lovelace on 03/20/24 10:04 UA Blood 0 Aiden/uL Last Edit by Lidia Porteranais on 03/20/24 10:04 UA Specific [place] 1.025 Last Edit by Lidia Porteranais on 03/20/24 10:04 UA Ketone Last Edit by Lidia Porteranais on 03/20/24 10:04 UA Bilirubin 0 mg/dL Last Edit by Lidia Porteranais on 03/20/24 10:04 UA Glucose 0 mg/dL Last Edit by Lidia Porteranais on 03/20/24 10:04 Results Reviewed Results Reviewed: Laboratory Last Values Urine pH (Auto) 6.0 03/20/24 10:01 Specific [place] (Auto) 1.025 03/20/24 10:01 Urine Protein (Auto) 0 mg/dL 03/20/24 10:01 Glucose (UA)(Auto) 0 mg/dL 03/20/24 10:01 Urine Blood (Auto) 0 Aiden/uL 03/20/24 10:01 Urine Bilirubin (Auto) 0 mg/dL 03/20/24 10:01 Urine Urobilinogen (Auto) 0.2 mg/dL 03/20/24 10:01 Leukocyte Esterase (Auto) 0 Kassandra/uL 03/20/24 10:01 Assessment & Plan Assessment & Plan (1) Enlarged prostate: Code(s): N40.0 - Benign prostatic hyperplasia without lower urinary tract symptoms Category: Medical (2) Elevated PSA: Code(s): R97.20 - Elevated prostate specific antigen [PSA] Category: Medical (3) Ureterocele: Code(s): N28.89 - Other specified disorders of kidney and ureter Category: Medical Plan In office urinalysis results reviewed with the patient today; as noted above. Recent PSA results reviewed with the patient today; as noted above. Continue finasteride as discussed and prescribed. Will obtain redraw of PSA in 6 months. Patient denies any bothersome urinary issues or concerns at this time. Follow-up in 6 months with lab to be completed prior; or sooner with any issues, concerns, and or questions. Orders: Orders AMB Urinalysis Automated Today Z13.9 - Encounter for screening, unspecified Prostate Specific Antigen 6 Months N40.0 - Benign prostatic hyperplasia without lower urinary tract symptoms Patient Instructions: The patient had an opportunity to ask questions regarding the treatment plan. All questions were answered. Physical exam, labs, and imaging were discussed and reviewed in detail. As well as risks, benefits, and discussion of treatment choices. No major barriers to understanding were identified. The patient expressed understanding and agreement with the above treatment plan. The patient was made aware they should contact our office by phone for worsening of their current condition, the appearance of new symptoms, or with any questions or concerns. Compliance is encouraged with any medications and follow up testing that is ordered. It is a privilege to be allowed the opportunity to participate in? your urological care.? Again, if you have any questions or concerns If you have any questions or concerns please do not hesitate to contact me. The office is [phone]. This note is constructed using voice recognition software. While every effort has been made to ensure accuracy transcription manager errors may have been included. Yours sincerely, JENNA Bee Coding Level of Care Code Est Pt Level 3 (67063) Diagnoses Enlarged prostate N40.0 Elevated PSA R97.20 Ureterocele N28.89
== END 2024-03-20 10:25 | disposition home or self-care (01) ==
PROVIDERS: PCP Internal Medicine; Visit Provider Nurse Practitioner Family
DX: N40.0 Benign prostatic hyperplasia without lower urinary tract symptoms (principal); R97.20 Elevated prostate specific antigen [PSA]; N28.89 Other specified disorders of kidney and ureter; Z13.9 Encounter for screening, unspecified
CPT/HCPCS: 99213

== ENCOUNTER → 2024-03-20 09:17 | Outpatient (BNVA) | payer MEDICARE, BC, SELFPAY | PROVIDERS: PCP Internal Medicine; Visit Provider Nurse Practitioner Family | DX: N40.0 Benign prostatic hyperplasia without lower urinary tract symptoms (principal); N28.89 Other specified disorders of kidney and ureter; R97.20 Elevated prostate specific antigen [PSA] | CPT/HCPCS: 81003; 99212 ==

== ENCOUNTER 2024-09-10 08:11 | Outpatient (REF) | payer MEDICARE, BC, SELFPAY ==
--- OUTSIDE RECORDS SUMMARY | 2024-09-10 08:16 | XMS_ITS | Clinical Summary ---
Author Organization [facility] [address] [place] [address] [place] [address] Phone Care Team Providers [employer] Supervisor Name Role Phone Ricco Lemon Primary Care Provider [phone] Allergies No known active allergies Medications amLODIPine (NORVASC) 5 mg tablet Take 1 tablet (5 mg total) by mouth 1 (one) time each day. 11/20/2023 Active finasteride (PROSCAR) 5 mg tablet Take 1 tablet (5 mg total) by mouth 1 (one) time each day. 03/28/2023 Active lisinopriL (PRINIVIL,ZESTRI L) 20 mg tablet Take 1 tablet (20 mg total) by mouth 1 (one) time each day. 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 Rheumatic fever 05/11/2005 Overview (03/10/2024): IMO update Encounters Date Type Department Care Team Description 08/05/2024 Telephone Adult Medicine [address] [address] Ricco Lemon PA Referral (Ophthalmology Insurance Referral) from Last 3 Months Immunizations Name Administration Dates Next Due Influenza Quadravalent, MDCK , 0.5ml, preservative free (Flucelvax) 6mo and older 01/01/2019,01/07/2018,01/29/2017 Influenza trivalent, 0.5mL ( Fluad) 65yo and older 02/06/2022,12/22/2019 Influenza trivalent, 0.5mL, preservative free (Fluarix; FluLaval; Fluzone) ages 6mo and older (Afluria) 3 years and older 02/02/2016,01/27/2014,01/13/2013,02/04 Influenza, Unspecified 02/26/2023,01/29/2017 Pfizer (ages 12 & older) Biv alent, COVID-19 01/04/2022 Pneumococcal conjugate 13 va lent (Prevnar 13, PCV13) 2mo and older 11/04/2019 Pneumococcal polysaccharide 23 valent (Pneumovax 23) 2yo and older 11/23/2020 Respiratory syncytial virus (RSV), unspecified 04/11/2023 Td Tetanus diptheria (Tdvax) 7yo and older 10/23/2017,10/31/1997 Tdap Tetanus diptheria acell ular pertussis (Boostrix; Adacel) 7yo and older 09/12/2007 Zoster Live 08/12/2014 Surgical History Surgery Date Site/Laterality Comments HERNIA REPAIR PROCEDURE: HISTORICAL HERNIA REPAIR/ING; COMMENT: LEFT, undescended testicle surgery as well KNEE SURGERY PROCEDURE: HISTORICAL KNEE SURGERY; COMMENT: RT KNEE ARTHROSCOPY COLONOSCOPY 06/12/2005 PROCEDURE: HISTORICAL COLONOSCOPY; COMMENT: [facility]; Dr. Nicho Villegas, negative screening examination. COLONOSCOPY 06/18/2015 PROCEDURE: HISTORICAL COLONOSCOPY; COMMENT: [facility] [place]; Dr. Aly Gonzalez; negative examination. 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 DX:Left knee DJD Impaired fasting glucose 03/11/2014 DX:Impa ired fasting glucose HTN (hypertension) 08/12/2014 DX:HTN (hyper tension) Hyperlipidemia 04/16/2015 DX:Hyperlipidemi a Family History Relation Name Status Comments Father (Age 84) vascular d ementia, diabetes, smoker Mother (Age 79) [place], smoker Sister Alive ovarian cancer Social History Tobacco Use Types Packs/Day Years Used Date Smoking Tobacco: Never Smokeless Tobacco: Never Tobacco Cessation:Counseling Given: Not Answered Alcohol Use Standard Drinks/Week Comments Yes 2.5 (1 standard drink = 0.6 oz p ure alcohol) Housing Instability Answer Date Recorde d Are you worried that in the next 2 months you may not have stable housing? No 05/13/2024 Food Access & Nutrition Answer Date Rec orded Do you have access to a vari ety of food including fruits and vegetables? Yes 05/13/2024 Health Literacy Answer Date Recorded How often do you need to hav e someone help you when you read instructions, pamphlets, or other written material from your doctor or pharmacy? Never 05/13/2024 Caregiver: How often do you need to have someone help you when you read instructions, pamphlets, or other written material from your doctor or pharmacy? Not on file 05/13/2024 Financial Risk Answer Date Recorded How hard is it for you to pa y for the very basics like food, housing, medical care, and air conditioning / heating? Not very hard 05/13/2024 Transportation Answer Date Recorded Has the lack of transportati on kept you from meetings, work, or from getting things needed for daily living? No Has the lack of transportati on kept you from medical appointments or from getting medications? No 05/13/2024 Social Isolation Answer Date Recorded How often do you feel lonely or isolated from th ose around you? Never 05/13/2024 Food Risk Answer Date Recorded Within the past 12 months we worried whether our food would run out before we got money to buy more. Never true 05/13/2024 Within the past 12 months th e food we bought just didn't last and we didn't have money to get more. Never true 05/13/2024 Dependent Care Answer Date Recorded Do you need help finding or paying for care for your loved ones. For example, school child care attendant or elderly care for an older adult? No 05/13/2024 Education Answer Date Recorded Do you think completing more education or training, like finishing a GED, going to college, or learning a trade, would be helpful for you? N/A 05/13/2024 Employment and Income Answer Date Recor ded During the last four weeks, have you been actively looking for work? No 05/13/2024 Living Situation Answer Date Recorded What is your living situation? 0 05/13/2024 Sex and Gender Information Value Date Recorded Sex Assigned at Not on file Legal Sex Male 11:42 AM EST Gender Identity Not on file Sexual Orientation Not on file Obstetrics History Last Filed Vital Signs Vital Sign Reading Time Taken Comments Blood Pressure 160/90 06/06/2024 11:33 AM EST Pulse 88 05/13/2024 3:00 PM EST Temperature 36.3 ??C (97.3 ??F) 05/13/2024 3:00 PM ES T Respiratory Rate 14 05/13/2024 3:00 PM EST Oxygen Saturation - - Inhaled Oxygen Concentration - - Weight 88 kg (194 lb) 06/06/2024 11:33 AM EST Height 180.3 cm (5' 11 ) 06/06/2024 11:33 AM EST Body Mass Index 27.06 06/06/2024 11:33 AM EST Plan of Treatment Upcoming Encounters Date Type Department Care Team (Late st Contact Info) Description 11/17/2024 3:30 PM EDT Office Visit Adult Medicine [facility] [address] [place] [address] Ricco Lemon PA [address] [place] [address] 06/17/2025 11:00 AM EDT Ancillary Procedure [facility] [address] [place] [id number] Health Maintenance Due Date Last Done Comments Zoster Vaccines (2 of 3) 10/07/2014 08/12/2014 COVID-19 Vaccine ( season) 2024 02/21/2024, 01/02/2023, 01/04/2022, Additional history exists Depression Screening 05/13/2025 05/13/2024, 11/20/19 24 Falls Risk Assessment 05/13/2025 05/13/2024, 024 Hypertension/CHF/CAD Annual BMP Blood Test 05/13/2025 05/13/2024, 07/16/2023 Medicare Annual Wellness Visit 05/13/2025 05/13/2024 Social Influencers of Health Screening 05/13/2025 05/13/2024 Colorectal Cancer Screening: Colonoscopy 06/17/2025 06/18/2015 DTaP,Tdap,and Td Vaccines (4 - Td or Tdap) 10/24/2027 10/23/2017, 09/12/2007, 10/31/1997 Cholesterol Screening (Lipid Panel) 05/13/2029 05/13/2024, 07/16/2023 Hepatitis C Screening Completed 08/28/2014 Pneumococcal Vaccine: 50+ Years Completed 11/23/2020, 11/04/2019 RSV Immunization Patients Under 20 months Aged Out 04/11/2023 No longer eligible based on patient's age to complete this topic RSV Immunization Adult Patients Completed 04/17/2023, 04/11/2023 Influenza Vaccine Completed 02/15/2024, , 01/10/2023, Additional history exists HIB Vaccines Aged Out No longer eligi ble based on patient's age to complete this topic HPV Vaccines Aged Out No longer eligi ble based on patient's age to complete this topic Hepatitis A Vaccines Aged Out No long er eligible based on patient's age to complete this topic Hepatitis B Vaccines Aged Out No long er eligible based on patient's age to complete this topic IPV Vaccines Aged Out No longer eligi ble based on patient's age to complete this topic MMR Vaccines Aged Out No longer eligi ble based on patient's age to complete this topic Meningococcal ACWY Vaccine Aged Out N o longer eligible based on patient's age to complete this topic Meningococcal B Vaccine Aged Out No l onger eligible based on patient's age to complete this topic Varicella Vaccines Aged Out No longer eligible based on patient's age to complete this topic Procedures Procedure Name Priority Date/Time Associated Diagnosis Comments COMPREHENSIVE METABOLIC PANEL Routine 05/13/2024 8:32 AM EST Primary hypertension Other hyperlipidemia Impaired fasting glucose Benign prostatic hyperplasia with nocturia LIPID PANEL WITH REFLEX TO DIRECT LDL Routine 05/13/2024 8:32 AM EST Primary hypertension Other hyperlipidemia Impaired fasting glucose Benign prostatic hyperplasia with nocturia DEPRESSION SCREENING Routine 11/20/2023 FALLS RISK ASSESSMENT Routine 11/20/2023 COLONOSCOPY Routine 06/18/2015 HEPATITIS C SCREENING Routine 08/28/2014 from Last 3 Months or Most Recently Relevant to Health Maintenance Results * (ABNORMAL) Lipid panel with reflex to direct LDL (05/13/2024 8:32 AM EST) Cholesterol 209(H) 0 - 200 mg/dL LAB CHEMISTRY METHOD 05/13/2024 10:25 AM EST [facility] Triglycerides 143 0 - 150 mg/dL LAB CHEMISTRY METHOD 05/13/2024 10:25 AM EST [facility] HDL 107 >=40 mg/dL LAB CHEMISTRY METHOD 05/13/2024 10:25 AM EST [facility] LDL Calculated 73 0 - 100 mg/dL LAB CHEMISTRY METHOD 05/13/2024 10:25 AM EST [facility] VLDL Cholesterol Lb 28.6 mg/dL LAB CHEMISTRY METHOD 05/13/2024 10:25 AM EST [facility] Non HDL Chol. (LDL+VLDL) 102 <145 mg/dL LAB CHEMISTRY METHOD 05/13/2024 10:25 AM EST [facility] Chol/HDL Ratio 2.0 0.0 - 4.4 LAB CHEMISTRY METHOD 05/13/2024 10:25 AM EST [facility] Blood Venous blood specimen / Unknown Venipuncture / Unknown 05/13/2024 8:32 AM EST 05/13/2024 8:32 AM EST us Ricco NICHOLS LAB BLOOD ORDERABLES Sabiha mary Result [facility] [address] [place] [address], * Comprehensive metabolic panel (05/13/2024 8:32 AM EST) [facility] Signature Sodium 140 133 - 145 mmol/L LAB CHEMISTRY METHOD 05/13/2024 10:24 AM [facility] Potassium 4.4 3.5 - 5.5 mmol/L LAB CHEMISTRY METHOD 05/13/2024 10:24 AM [facility] Chloride 106 96 - 110 mmol/L LAB CHEMISTRY METHOD 05/13/2024 10:24 AM [facility] CO2 28 21 - 32 mmol/L LAB CHEMISTRY METHOD 05/13/2024 10:24 AM [facility] Anion Gap 6 3 - 11 LAB CHEMISTRY METHOD 05/13/2024 10:24 AM [facility] Glucose 93 70 - 100 mg/dL LAB CHEMISTRY METHOD 05/13/2024 10:24 AM [facility] BUN 20 5 - 25 mg/dL LAB CHEMISTRY METHOD 05/13/2024 10:24 AM [facility] Creatinine 1.09 0.70 - 1.30 mg/dL LAB CHEMISTRY METHOD 05/13/2024 10:24 AM [facility] eGFR 73 >=60 mL/min/1. 73m2 LAB CHEMISTRY METHOD 05/13/2024 10:24 AM [facility] Comment:Calculation based on the??Chronic Kidney Disease Epidemiology Collaboration (CKD-EPI) equation refit??without adjustment for race. BUN/Creatinine Ratio 18.3 LAB CHEMISTRY METHOD 05/13/2024 10:24 AM [facility] Calcium 9.2 8.5 - 10.5 mg/dL LAB CHEMISTRY METHOD 05/13/2024 10:24 AM [facility] AST (SGOT) 29 10 - 42 unit/L LAB CHEMISTRY METHOD 05/13/2024 10:24 AM [facility] ALT (SGPT) 38 10 - 60 unit/L LAB CHEMISTRY METHOD 05/13/2024 10:24 AM [facility] Alkaline Phosphatase 67 42 - 121 unit/L LAB CHEMISTRY METHOD 05/13/2024 10:24 AM EST [facility] Total Protein 6.8 6.0 - 8.0 g/dL LAB CHEMISTRY METHOD 05/13/2024 10:24 AM EST [facility] Albumin 4.0 3.2 - 5.0 g/dL LAB CHEMISTRY METHOD 05/13/2024 10:24 AM EST [facility] Total Bilirubin 0.6 0.0 - 1.4 mg/dL LAB CHEMISTRY METHOD 05/13/2024 10:24 AM EST [facility] Blood Venous blood specimen / Unknown Venipuncture / Unknown 05/13/2024 8:32 AM EST 05/13/2024 8:32 AM EST Ricco NICHOLS LAB BLOOD ORDERABLES Sabiha l Result [facility] [address] [place] [address], [place] [phone] * Falls Risk Assessment (11/20/2023) [facility] Falls Risk Assessment Abstracted [facility] Provider HEALTH MAINTENANCE Final Result * Depression Screening (11/20/2023) [facility] Depression Screening Abstracted [facility] Provider HEALTH MAINTENANCE Final Result * Colonoscopy (06/18/2015) [facility] Colonoscopy No interpretation , abstracted Anatomical Region Laterality Modality Other [facility] Provider HEALTH MAINTENANCE Final Result * Hepatitis C Screening (08/28/2014) [facility] Hepatitis C Screening Abstracted [facility] Provider HEALTH MAINTENANCE Final Result from Last 3 Months or Most Recently Relevant [place] [id number] MEDICARE [facility] Care Teams [employer] Supervisor Relationship Specialty Start Date End Date Ricco Lemon PA [address] [place] [address] PCP - General Internal Medicine 05/05/20
[2024-09-10 11:19] LABS: Prostate Specific Antigen 2.32 ng/mL (<0.05-4.0)
== END 2024-09-10 08:12 | disposition home or self-care (01) ==
LOC: HO.HMGCLDS 08:11
PROVIDERS: PCP Physician Assistant Medical; Visit Provider Nurse Practitioner Family
DX: N40.0 Benign prostatic hyperplasia without lower urinary tract symptoms (principal); Z12.5 Encounter for screening for malignant neoplasm of prostate
CPT/HCPCS: 36415; 84153

== ENCOUNTER 2024-09-18 07:39 | Outpatient (AMB) | payer MEDICARE, BC, SELFPAY ==
--- NOTE | 2024-09-18 07:39 | A.OFFVIS_ITS ---
Intake Visit Reasons: 6m/ PSA Intake Note: Patient presents for follow up visit for elevated psa and lab results PSA: 2.32 Urology Medications: Finasteride Blood Thinner: none [employer] Helper Required: No Accompanied by: Self / Same As Patient Allergies No Known Allergies Allergy (Verified 09/18/24 08:01) Medication List - Last Reconciled 09/18/24 by CARL Bee amlodipine 5 mg PO DAILY finasteride 5 mg PO DAILY 90 days lisinopril 20 mg PO DAILY HPI Comments Details: Ji is a very pleasant 69-year-old male patient of Dr. Dobson. He has a past medical history of rheumatic fever as a child, hyperlipidemia, hypertension, dilation of the thoracic aorta, and left knee DJD. He is being followed up on today via video telehealth for his elevated PSA. In discussion with the patient today reports to be doing and feeling well. He denies having had any bothersome urinary issues or concerns since his last visit. He currently denies any bothersome urinary issues or concerns. He does discuss feeling episodes of nocturia have significantly decreased in his only up 1 time per night to urinate. He reports compliance with finasteride as prescribed. Recent PSA results reviewed with the patient today. As noted and trended below. 10/29 5.8, 03/31 5.5, 07/31 3.7 10/30 3.1, 04/01 2.7, 10/01 2.3 Previous workup has included a retroperitoneal ultrasound 03/31 noting bilateral kidneys with no calculi, and or hydronephrosis. Right lower pole 0.8 cm cyst with benign features. There is no indication for follow-up imaging per radiology report. The bladder is well distended. A 1.4 x 0.9 x 1.8 cm cystic structure along the bladder wall, possibly representing a ureterocele. Enlarged prostate of approximately 86 mL. Echogenic foci within the enlarged prostate or characteristics of coarse calcifications. When asked he denies urinary urgency, urinary frequency, incontinence, nocturia, hematuria, dysuria, foul smelling urine, changes to urinary stream, flank pain, fever, and or chills. He is happy with his current voiding parameters. He otherwise denies any other issues or concerns at this time. [facility] Medical History History of rheumatic fever as a child Left knee DJD Impaired fasting glucose Essential (primary) hypertension Hyperlipidemia, unspecified Benign prostatic hyperplasia with nocturia Dilation of thoracic aorta Review of Systems Const Reports as per HPI Eyes Reports no additional complaints ENT Reports no additional complaints Card Reports as per HPI Resp Reports no additional complaints GI Reports no additional complaints Reports as per HPI Musc Reports as per HPI Neuro Reports no additional complaints Psych Reports no additional complaints Endo Reports no additional complaints Efrain/Lymph Reports no additional complaints Aller/Immun Reports no additional complaints Physical Exam Const General: cooperative, healthy appearing, comfortable, no acute distress, well developed, alert and awake Orientation/consciousness: patient oriented x3 Resp Effort & Inspection: normal respiratory effort and able to speak in complete sentences Neuro General: patient oriented x3 Psych Appearance: grossly normal Speech and movement: Clear speech present Affect: normal affect Attitude: cooperative Thought process: Normal thought process present Thought content: Normal thought content present Insight: Fair insight present (Psych) Judgement: Fair judgement present (Psych) Telehealth Telehealth Telehealth Platform: [employer] Location of provider rendering services: practice address Location of patient: address on file Patient Identification confirmed using: Name, : Yes Telehealth method: video Patient verbally consented to treatment: Yes Patient verbally consented to billing insurance company: Yes Patient informed of any privacy concerns related to visit: Yes Minutes spent on Phone/Video with Pt.: 15 Assessment & Plan Assessment & Plan (1) Enlarged prostate: Code(s): N40.0 - Benign prostatic hyperplasia without lower urinary tract symptoms Category: Medical (2) Elevated PSA: Code(s): R97.20 - Elevated prostate specific antigen [PSA] Category: Medical (3) Ureterocele: Code(s): N28.89 - Other specified disorders of kidney and ureter Category: Medical Plan Recent PSA results reviewed with the patient today; as noted above. Continue finasteride as discussed and prescribed. Will obtain redraw of PSA in 6 months. Patient denies any bothersome urinary issues or concerns at this time. Follow-up in 6 months with lab to be completed prior; or sooner with any issues, concerns, and or questions. Orders: Orders Prostate Specific Antigen 6 Months N40.0 - Benign prostatic hyperplasia without lower urinary tract symptoms Patient Instructions: The patient had an opportunity to ask questions regarding the treatment plan. All questions were answered. Physical exam, labs, and imaging were discussed and reviewed in detail. As well as risks, benefits, and discussion of treatment choices. No major barriers to understanding were identified. The patient expressed understanding and agreement with the above treatment plan. The patient was made aware they should contact our office by phone for worsening of their current condition, the appearance of new symptoms, or with any questions or concerns. Compliance is encouraged with any medications and follow up testing that is ordered. It is a privilege to be allowed the opportunity to participate in? your urological care.? Again, if you have any questions or concerns If you have any questions or concerns please do not hesitate to contact me. The office is [phone]. This note is constructed using voice recognition software. While every effort has been made to ensure accuracy sap crm developer errors may have been included. Yours sincerely, JENNA Bee Coding Level of Care Code Tele Est Pt Level 3 (44404) Diagnoses Enlarged prostate N40.0 Elevated PSA R97.20 Ureterocele N28.89
== END 2024-09-18 08:21 | disposition home or self-care (01) ==
LOC: HO.HUSH 07:39
PROVIDERS: PCP Physician Assistant Medical; Visit Provider Nurse Practitioner Family
DX: N40.0 Benign prostatic hyperplasia without lower urinary tract symptoms (principal); R97.20 Elevated prostate specific antigen [PSA]; N28.89 Other specified disorders of kidney and ureter
CPT/HCPCS: 99213

== ENCOUNTER → 2024-09-18 07:39 | Outpatient (BNVA) | payer MEDICARE, BC, SELFPAY | PROVIDERS: PCP Physician Assistant Medical; Visit Provider Nurse Practitioner Family | DX: Z13.89 Encounter for screening for other disorder (principal) ==

== ENCOUNTER 2025-03-10 08:08 | Outpatient (REF) | payer MEDICARE, BC, SELFPAY ==
--- OUTSIDE RECORDS SUMMARY | 2025-03-10 08:13 | XMS_ITS | Clinical Summary ---
Author Organization [facility] [address] [place] [address] [place] [phone] Phone Care Team Providers Care Chief Psychology Name Role Phone Ricco Lemon Primary Care Provider [phone] Allergies No known active allergies Medications finasteride (PROSCAR) 5 mg tablet Take 1 tablet (5 mg total) by mouth 1 (one) time each day. 03/28/2023 Active lisinopriL (PRINIVIL,ZESTRI L) 20 mg tablet TAKE 1 TABLET BY MOUTH EVERY DAY 90 tablet 1 11/03/2024 Active amLODIPine (NORVASC) 5 mg tablet Take 1 tablet (5 mg total) by mouth 1 (one) time each day. 90 each 3 01/26/2025 Active Active Problems Problem Noted Date Diagnosed Date Dilatation of thoracic aorta (CMS/HCC V24) 06/20 Benign prostatic hyperplasia with nocturia 11/23 Elevated PSA 09/23/2015 Hyperlipidemia 04/16/2015 HTN (hypertension) 08/12/2014 Impaired fasting glucose 03/11/2014 Left knee DJD 12/16/2010 Rheumatic fever 05/11/2005 Overview (03/10/2024): IMO update Immunizations Immunization Administration Dates Next Due Influenza Quadravalent, MDCK [...] ARTHROSCOPY COLONOSCOPY 06/12/2005 PROCEDURE: HISTORICAL COLONOSCOPY; COMMENT: [facility]; Dr. Nicho Villegas, negative screening examination. COLONOSCOPY 06/18/2015 PROCEDURE: HISTORICAL COLONOSCOPY; COMMENT: [facility]; Dr. Aly Gonzalez; negative examination. Medical History [...] d ementia, diabetes, smoker Mother (Age 79) [place], smoker Sister Alive ovarian cancer Social History [...] care for your loved ones. For example, professor of early childhood education or elderly care for an older adult? [...] Date Recorded What is your living situation? Unrecognized valu e 05/13/2024 Sex and Gender Information Value Date Recorded Sex Assigned at Not on file Legal Sex Male 11:42 AM EST Gender Identity Not on file Sexual Orientation Not on file Obstetrics History Last Filed Vital Signs Vital Sign Reading Time Taken Comments Blood Pressure 124/77 11/17/2024 3:25 PM EDT Pulse 93 11/17/2024 3:25 PM EDT Temperature 35.9 C (96.7 F) 11/17/2024 3:25 PM EDT Respiratory Rate 13 11/17/2024 3:25 PM EDT Oxygen Saturation 95% 11/17/2024 3:25 PM EDT Inhaled Oxygen Concentration - - Weight 86.6 kg (191 lb) 11/17/2024 3:25 PM EDT Height 180.3 cm (5' 11 ) 11/17/2024 3:25 PM EDT Body Mass Index 26.64 11/17/2024 3:25 PM EDT Plan of Treatment Upcoming Encounters Date Type Department Care Team (Late st Contact Info) Description 05/18/2025 1:00 PM EST Office Visit Adult Medicine [address] [phone] Ricco Lemon PA [address] [place] [phone] 06/17/2025 11:00 AM EDT Ancillary Procedure [facility] [address] [place] [address] Health Maintenance Due Date Last Done Comments Zoster Vaccines (2 of 3) 10/07/2014 08/12/2014 COVID-19 Vaccine ( season) 2024 02/21/2024, 01/02/2023, 01/04/2022, Additional history exists Influenza Vaccine (#1) 2024 , 02/26/2023, 01/10/2023, Additional history exists Falls Risk Assessment 05/13/2025 05/13/2024, 024 Hypertension/CHF/CAD [...] RSV Immunization Adult Patients Completed 04/17/2023, 04/11/2023 Depression Screening Completed 05/13/2024, 11/20/19 24 HIB Vaccines Aged Out No longer eligi [...] LAB CHEMISTRY METHOD 05/13/2024 10:[address] [facility] Triglycerides 143 0 - 150 mg/dL LAB CHEMISTRY METHOD 05/13/2024 10:[address] [facility] HDL 107 >=40 mg/dL LAB CHEMISTRY METHOD 05/13/2024 10:[address] [facility] LDL Calculated 73 0 - 100 mg/dL LAB CHEMISTRY METHOD 05/13/2024 10:[address] [facility] VLDL Cholesterol Lb 28.6 mg/dL LAB CHEMISTRY METHOD 05/13/2024 10:[address] [facility] Non HDL Chol. (LDL+VLDL) 102 <145 mg/dL LAB CHEMISTRY METHOD 05/13/2024 10:[address] [facility] Chol/HDL Ratio 2.0 0.0 - 4.4 LAB CHEMISTRY METHOD 05/13/2024 10:[address] [facility] Blood Venous blood specimen / Unknown Venipuncture / Unknown 05/13/2024 8:32 AM EST 05/13/2024 8:32 AM EST us Ricco NICHOLS LAB BLOOD ORDERABLES Sabiha mary Result [facility] [address] [place] [address], * Comprehensive metabolic panel (05/13/2024 8:32 AM EST) Sodium 140 133 - 145 mmol/L LAB CHEMISTRY METHOD 05/13/2024 10:24 AM [facility] Potassium 4.4 3.5 - 5.5 mmol/L LAB CHEMISTRY METHOD 05/13/2024 10:24 AM [facility] Chloride 106 96 - 110 mmol/L LAB CHEMISTRY METHOD 05/13/2024 10:24 AM [facility] CO2 28 21 - 32 mmol/L LAB CHEMISTRY METHOD 05/13/2024 10:24 AM [facility] Anion Gap 6 3 - 11 LAB CHEMISTRY METHOD 05/13/2024 10:24 AM [facility] Glucose 93 70 - 100 mg/dL LAB CHEMISTRY METHOD 05/13/2024 10:24 AM [facility] BUN 20 5 - 25 mg/dL LAB CHEMISTRY METHOD 05/13/2024 10:24 AM [facility] Creatinine 1.09 0.70 - 1.30 mg/dL LAB CHEMISTRY METHOD 05/13/2024 10:24 AM [facility] eGFR 73 >=60 mL/min/1. 73m2 LAB CHEMISTRY METHOD 05/13/2024 10:24 AM [facility] Comment:Calculation based on the Chronic Kidney Disease Epidemiology Collaboration (CKD-EPI) equation refit without adjustment for race. BUN/Creatinine Ratio 18.3 LAB CHEMISTRY METHOD 05/13/2024 10:24 AM [facility] Calcium 9.2 8.5 - 10.5 mg/dL LAB CHEMISTRY METHOD 05/13/2024 10:24 AM [facility] AST (SGOT) 29 10 - 42 unit/L LAB CHEMISTRY METHOD 05/13/2024 10:24 AM [facility] ALT (SGPT) 38 10 - 60 unit/L LAB CHEMISTRY METHOD 05/13/2024 10:24 AM [facility] Alkaline Phosphatase 67 42 - 121 unit/L LAB CHEMISTRY METHOD 05/13/2024 10:[address] [facility] Total Protein 6.8 6.0 - 8.0 g/dL LAB CHEMISTRY METHOD 05/13/2024 10:[address] [facility] Albumin 4.0 3.2 - 5.0 g/dL LAB CHEMISTRY METHOD 05/13/2024 10:[address] [facility] Total Bilirubin 0.6 0.0 - 1.4 mg/dL LAB CHEMISTRY METHOD 05/13/2024 10:[address] [facility] Blood Venous blood specimen / Unknown Venipuncture / Unknown 05/13/2024 8:32 AM EST 05/13/2024 8:32 AM EST Ricco NICHOLS LAB BLOOD ORDERABLES Sabiha l Result [facility] [address] [place] [address], * Falls Risk Assessment (11/20/2023) [facility] [address] Falls Risk Assessment Abstracted [facility] Provider HEALTH MAINTENANCE Final Result * Depression Screening (11/20/2023) Pathologist [facility] Depression Screening Abstracted [facility] Provider HEALTH MAINTENANCE Final Result * Colonoscopy (06/18/2015) Pathologist [facility] Colonoscopy No interpretation , abstracted Anatomical Region Laterality Modality Other Historical Provider HEALTH MAINTENANCE Final Result * Hepatitis C Screening (08/28/2014) Pathologist [facility] Hepatitis C Screening Abstracted Historical Provider HEALTH MAINTENANCE Final Result from Last 3 Months or Most Recently Relevant to Health Maintenance Insurance MEDICARE [facility] Care Teams Chief Psychology Relationship Specialty Start Date End Date Ricco Lemon PA [address] [place] [address] PCP - General Internal Medicine 05/05/20
[2025-03-10 11:04] LABS: Prostate Specific Antigen 2.02 ng/mL (<0.05-4.0)
== END 2025-03-10 08:09 | disposition home or self-care (01) ==
LOC: HO.HMGCLDS 08:08
PROVIDERS: PCP Physician Assistant Medical; Visit Provider Nurse Practitioner Family
DX: N40.0 Benign prostatic hyperplasia without lower urinary tract symptoms (principal); Z12.5 Encounter for screening for malignant neoplasm of prostate
CPT/HCPCS: 36415; 84153

== ENCOUNTER 2025-03-16 10:17 | Outpatient (AMB) | payer MEDICARE, BC, SELFPAY ==
--- NOTE | 2025-03-16 10:15 | MHC.OFFVIS ---
Intake Visit Reasons: 6m/PSA/UA Intake Note: Patient presents for 6 mo follow up visit Urology Medications: Finasteride Blood Thinner: none Abx allergy : none Labs done : 03/10/25 PSA :2.02 Quality Officer Required: No Accompanied by: Self / Same As Patient Allergies No Known Allergies Allergy (Verified 03/16/25 10:58) Medication List - Last Reconciled 03/16/25 by JENNA Bee amlodipine 5 mg PO DAILY finasteride 5 mg PO DAILY 90 days lisinopril 20 mg PO DAILY HPI Comments Details: Ji is a very pleasant 69-year-old male patient of Dr. Lemon. He has a past medical history of rheumatic fever as a child, hyperlipidemia, hypertension, dilation of the thoracic aorta, and left knee DJD. He presents to the office today for follow-up of his elevated PSA. In discussion with the patient today he reports to be doing and feeling well. He denies having had any bothersome urinary issues or concerns since his last office visit here. He reports compliance with finasteride as prescribed. Most recent PSA results reviewed with the patient today as noted and trended below: 10/29 5.8, 03/31 5.5, 07/31 3.7 10/30 3.1, 04/01 2.7, 10/01 2.3, 04/02 2.0 Previous workup has included a retroperitoneal ultrasound 03/31 noting bilateral kidneys with no calculi, and or hydronephrosis. Right lower pole 0.8 cm cyst with benign features. There is no indication for follow-up imaging per radiology report. The bladder is well distended. A 1.4 x 0.9 x 1.8 cm cystic structure along the bladder wall, possibly representing a ureterocele. Enlarged prostate of approximately 86 mL. Echogenic foci within the enlarged prostate or characteristics of coarse calcifications. When asked he denies urinary urgency, urinary frequency, incontinence, nocturia, hematuria, dysuria, foul smelling urine, changes to urinary stream, flank pain, fever, and or chills. He is happy with his current voiding parameters. He otherwise denies any other issues or concerns at this time. [facility] Medical History History of rheumatic fever as a child Left knee DJD Impaired fasting glucose Essential (primary) hypertension Hyperlipidemia, unspecified Benign prostatic hyperplasia with nocturia Dilation of thoracic aorta Review of Systems Const Reports as per [facility] Eyes Reports no additional complaints ENT Reports no additional complaints Card Reports as per [facility] Resp Reports no additional complaints GI Reports no additional complaints Reports as per HPI Musc Reports as per HPI Neuro Reports no additional complaints Psych Reports no additional complaints Endo Reports no additional complaints Efrain/Lymph Reports no additional complaints Aller/Immun Reports no additional complaints Physical Exam Const General: cooperative, healthy appearing, comfortable, no acute distress, well developed, alert and awake Orientation/consciousness: patient oriented x3 Limitations: no limitations HEENT Head: Yes normal to inspection, Yes normocephalic and Yes atraumatic Ears: hearing grossly normal bilaterally Eyes General: appearance normal, both eyes and all related structures Neck Neck: Yes normal visual inspection and Yes trachea midline Chest Chest palpation & inspection: normal inspection of the chest Resp Effort & Inspection: normal respiratory effort and able to speak in complete sentences Cardio Rate: regular rate GI Inspection: Yes normal to inspection General: Yes no CVA tenderness Back/Spine/Pelvis Back: no CVA tenderness Skin General skin exam: no rashes or lesions noted Neuro General: patient oriented x3 Extrem General: Yes normal to inspection Psych Appearance: grossly normal and well kempt Mental Status: mental status grossly normal Speech and movement: Normal speech and movement present and Clear speech present Affect: normal affect Attitude: cooperative Thought process: Normal thought process present Thought content: Normal thought content present Insight: Fair insight present (Psych) Judgement: Fair judgement present (Psych) Results AMB Urinalysis, Automated UA Leukoctes 0 Kassandra/uL Last Edit by Maite Huynh [facility] on 03/16/25 10:25 UA Nitrite Negative Last Edit by Maite Huynh [facility] on 03/16/25 10:25 UA Urobilinogen 0.2 mg/dL Last Edit by Maite Huynh [facility] on 03/16/25 10:25 UA Protein 0 mg/dL Last Edit by Maite Huynh [facility] on 03/16/25 10:25 UA pH 6.5 Last Edit by Maite Huynh [facility] on 03/16/25 10:25 UA Blood 0 Aiden/uL Last Edit by Maite Huynh [facility] on 03/16/25 10:25 UA Specific [place] 1.015 Last Edit by PANKAJ Douglass on 03/16/25 10:25 UA Ketone Negative Last Edit by PANKAJ Douglass on 03/16/25 10:25 UA Bilirubin 0 mg/dL Last Edit by Maite Huynh [facility] on 03/16/25 10:25 UA Glucose 0 mg/dL Last Edit by Maite Huynh [facility] on 03/16/25 10:25 Results Reviewed Results Reviewed: Laboratory Last Values Urine pH (Auto) 6.5 03/16/25 10:24 Specific [place] (Auto) 1.015 03/16/25 10:24 Urine Protein (Auto) 0 mg/dL 03/16/25 10:24 Glucose (UA)(Auto) 0 mg/dL 03/16/25 10:24 Urine Ketones (Auto) Negative 03/16/25 10:24 Urine Blood (Auto) 0 Aiden/uL 03/16/25 10:24 Urine Nitrite (Auto) Negative 03/16/25 10:24 Urine Bilirubin (Auto) 0 mg/dL 03/16/25 10:24 Urine Urobilinogen (Auto) 0.2 mg/dL 03/16/25 10:24 Leukocyte Esterase (Auto) 0 Kassandra/uL 03/16/25 10:24 Assessment & Plan Assessment & Plan (1) Enlarged prostate: Code(s): N40.0 - Benign prostatic hyperplasia without lower urinary tract symptoms Category: Medical (2) Elevated PSA: Code(s): R97.20 - Elevated prostate specific antigen [PSA] Category: Medical (3) Ureterocele: Code(s): N28.89 - Other specified disorders of kidney and ureter Category: Medical Plan Recent PSA results reviewed with the patient today; as noted above. Continue finasteride as discussed and prescribed. Will obtain redraw of PSA in 6 months. Patient denies any bothersome urinary issues or concerns at this time. He reports be happy with current voiding parameters. Follow-up in 6 months with PSA and PVR; or sooner with any issues, concerns, and or questions. Orders: Orders Prostate Specific Antigen 6 Months N40.0 - Benign prostatic hyperplasia without lower urinary tract symptoms, R97.20 - Elevated prostate specific antigen [PSA] AMB Urinalysis Automated Today N13.8 - Other obstructive and reflux uropathy, N40.1 - Benign prostatic hyperplasia with lower urinary tract symptoms Patient Instructions: The patient had an opportunity to ask questions regarding the treatment plan. All questions were answered. Physical exam, labs, and imaging were discussed and reviewed in detail. As well as risks, benefits, and discussion of treatment choices. No major barriers to understanding were identified. The patient expressed understanding and agreement with the above treatment plan. The patient was made aware they should contact our office by phone for worsening of their current condition, the appearance of new symptoms, or with any questions or concerns. Compliance is encouraged with any medications and follow up testing that is ordered. It is a privilege to be allowed the opportunity to participate in? your urological care.? Again, if you have any questions or concerns If you have any questions or concerns please do not hesitate to contact me. The office is [phone]. This note is constructed using voice recognition software. While every effort has been made to ensure accuracy hockey instructor errors may have been included. Yours sincerely, JENNA Bee Coding Level of Care Code Est Pt Level 3 (28107) Complex visit Add On G2211 Diagnoses Enlarged prostate N40.0 Elevated PSA R97.20 Ureterocele N28.89
== END 2025-03-16 11:01 | disposition home or self-care (01) ==
LOC: HO.HUSH 10:18
PROVIDERS: PCP Physician Assistant Medical; Visit Provider Nurse Practitioner Family
DX: N40.0 Benign prostatic hyperplasia without lower urinary tract symptoms (principal); R97.20 Elevated prostate specific antigen [PSA]; N28.89 Other specified disorders of kidney and ureter; N40.1 Benign prostatic hyperplasia with lower urinary tract symptoms; N13.8 Other obstructive and reflux uropathy
CPT/HCPCS: 99213; G2211

== ENCOUNTER → 2025-03-16 10:17 | Outpatient (BNVA) | payer MEDICARE, BC, SELFPAY | PROVIDERS: PCP Physician Assistant Medical; Visit Provider Nurse Practitioner Family | DX: N40.0 Benign prostatic hyperplasia without lower urinary tract symptoms (principal); R97.20 Elevated prostate specific antigen [PSA]; N28.89 Other specified disorders of kidney and ureter | CPT/HCPCS: 81003; 99212 ==